=== PATIENT | female | born 1965 | race Caucasian/White ===

== ENCOUNTER 2017-10-21 09:56 | Day surgery (SDC) | payer BC ==
[2017-10-21] MEDS ORDERED: MIDAZOLAM HCL 2MG/2ML VIAL IV ONE (09:57)
[2017-10-21] MEDS ORDERED: PROPOFOL 10 MG/ML VIAL IV ONE (09:57)
[2017-10-21] MEDS ORDERED: LIDOCAINE 2% MDV (20MG/ML) 20ML VIAL IV ONE (09:57)
--- NOTE | 2017-10-22 12:41 | Operative Note ---
DATE OF SURGERY: 10/21/2017 OPERATION: COLONOSCOPY with cold forceps polypectomy. PREOPERATIVE DIAGNOSIS: Colon cancer screening, average risk. POSTOPERATIVE DIAGNOSES: 1. Diminutive sigmoid colon polyp. 2. Mild sigmoid diverticulosis. ESTIMATED BLOOD LOSS: Minimum. SPECIMENS: Sigmoid polyp. COMPLICATIONS: None apparent. PREPARATION QUALITY: Good to excellent. PROCEDURE: After informed consent was obtained from the patient, she was placed in the left lateral decubitus position in the endoscopy suite, sedated and monitored by the department of anesthesia. Digital rectal examination was unremarkable. A well-lubricated [id number] colonoscope was inserted into the rectum and advanced to the cecum. Ileocecal valve and appendiceal orifice were unremarkable. Preparation quality was good to excellent. The cecum, ascending colon, transverse colon, and descending colon were unremarkable. The sigmoid colon demonstrated diminutive polyp removed with a cold forceps. There was also noted to be a few small-mouthed diverticula in the sigmoid colon. No inflammation was seen. The rectum was unremarkable in forward and in J-turn views. The endoscope was straightened, the rectal ampulla deflated, and the endoscope was removed. RECOMMENDATIONS: I would suggest the patient follow a high-fiber diet, consider a fiber supplement. She will require repeat exam in 5-10 years pending tissue histology. As always, thank you for allowing me to participate in the healthcare of your patients. CC: Dr. Cherry ROSENBERG
== END 2017-10-21 11:34 | disposition home or self-care (01) ==
LOC: HOP 09:56
PROVIDERS: ATTEND Internal Medicine Gastroenterology
DX: Z12.11 Encounter for screening for malignant neoplasm of colon (principal); K63.5 Polyp of colon; K57.30 Diverticulosis of large intestine without perforation or abscess without bleeding

== ENCOUNTER 2017-10-21 21:38 | Emergency (ER) | payer BC ==
[2017-10-21] MEDS ORDERED: KETOROLAC 30 MG/ML VIAL IVP ONE (21:56)
[2017-10-21] MEDS ORDERED: DIPHENHYDRAMINE HCL IV 50 MG/ML VIAL IVP ONE (21:56)
[2017-10-21] MEDS ORDERED: 0.9 % SODIUM CHLORIDE 1,000 ML BAG IV ONE (21:56)
[2017-10-21] MEDS ORDERED: METOCLOPRAMIDE HCL 10 MG/2 ML VIAL IVP ONE (21:56)
--- NOTE | 2017-10-21 22:02 | Emergency Department Record ---
History of Present Illness - General Chief Complaint: Headache Migraine Stated Complaint: JUAREZ Time Seen by Provider: 10/21/17 21:45 Source: Patient Mode of Arrival: Ambulatory Limitations: No limitations - History of Present Illness Initial Comments: The patient is here due to a 3 day hx of a headache. It started out just like one of her normal Migraine JUAREZ's that she frequently experiences. The pain was mainly frontal with mild photophobia and nausea. She then yesterday started a colon prep for a Colonoscopy and the liquid made the nausea worse and she did vomit last evening. Today the nausea persisted and the JUAREZ has gradually worsened. Since she was home she has been unable to eat due to the nausea and vomiting. The patient denies any visual changes, fever, chills, neck stiffness, numbness, tingling or balance issues. She does have a long hx of migraines similar to this but since the colon prep started she has felt worse. Complaint: Headache, "Migraine" Onset/Timin -: Days(s) Onset Description: At rest Location: Frontal, Neck Severity scale (1-10): 8 Quality: Other Consistency: Constant Context: Occured at rest Associated Symptoms: Nausea, Vomiting - Related Data Home Medications Medication Instructions Recorded Confirmed Last Taken Trazodone HCl 50 mg PO QHS 10/21/17 10/21/17 Unknown Allergies Allergy/AdvReac Type Severity Reaction Status Date / Time Sulfa (Sulfonamide Allergy RASH Verified 05/17/15 10:43 Antibiotics) Travel Screening - Travel/Exposure Within Last 30 Days Have you traveled within the last 30 days?: No Review of Systems Constitutional: Denies: Chills, Fever Eyes: Denies: Eye discharge ENT: Denies: Congestion Respiratory: Denies: Cough, Dyspnea Past Medical History - SOCIAL HISTORY Smoking Status: Former smoker Alcohol Use: Rare Drug Use: None - RESPIRATORY Hx Respiratory Disorders: No - CARDIOVASCULAR Hx Cardio Disorders: Yes Hx Hypertension: Yes (last year on rx, no longer takes) Hx Irregular Heartbeat: Yes (hx of pvc, stated 20 years ago, has seen food and beverage assistant manager) Comment:: plays soccer currently - NEURO Hx Neuro Disorders: Yes Hx Headaches: Yes Hx of Migraines: Yes (occurs about 3 months) - GI Hx GI Disorders: Yes Hx Reflux: Yes (occ takes tums at night) Comment:: constipation - Hx Genitourinary Disorders: Yes Hx Kidney Stones: Yes - ENDOCRINE Hx Endocrine Disorders: No - MUSCULOSKELETAL Hx Musculoskeletal Disorders: Yes - PSYCH Hx Psych Problems: Yes Comment:: stress management - HEMATOLOGY/ONCOLOGY Hx Hematology/Oncology Disorders: No Family Medical History Any Significant Family History?: No Physical Exam - General General Appearance: Alert, Oriented x3, Cooperative, No acute distress (The patient is very pleasant and cooperative and nontoxic.) - Head Head exam: Atraumatic, Normocephalic, Normal inspection - Eye Eye exam: Normal appearance, PERRL - ENT Throat exam: Normal inspection. negative: Tonsillar erythema, Tonsillar exudate - Neck Neck exam: Normal inspection, Full ROM, Tenderness (Palpation of the posterior cervical mucles does reproduce the JUAREZ 100%.). negative: Lymphadenopathy, Meningismus (The neck is very supple.) - Respiratory Respiratory exam: Normal lung sounds bilaterally. negative: Respiratory distress - Cardiovascular Cardiovascular Exam: Regular rate, Normal rhythm, Normal heart sounds - GI/Abdominal GI/Abdominal exam: Soft, Normal bowel sounds. negative: Distended, Rigid, Tenderness - Extremities Extremities exam: Normal inspection, Full ROM, Normal capillary refill. negative: Tenderness - Neurological Neurological exam: Alert, Normal gait, Oriented X3. negative: Abnormal gait, Altered, Motor sensory deficit Course Vital Signs 10/21/17 21:43 Temperature 97.8 F Pulse Rate [ 72 Pulse Ox Probe] Respiratory 20 Rate Blood Pressure 152/105 [Left Arm] Pulse Ox 98 - Reevaluation(s) Reevaluation #1: The patient is doing better. Her pain is resolving and she is resting comfortably. 10/21/17 22:33 Reevaluation #2: The patient is doing much better at this time. The pain is 90% done at this time. She is up walking and feels much improved and is ready for home. 10/21/17 23:00 Medical Decision Making - Data Complexity MDM Data: Labs Ordered and/or Reviewed - Lab Data Result diagrams: 10/21/17 22:00 10/21/17 22:00 Disposition Disposition: Discharge Clinical Impression: Headache Qualifiers: Headache type: other headache syndrome Qualified Code(s): G44.89 - Other headache syndrome Disposition: Home, Self-Care Condition: (2) Stable Instructions: Acute Headache (ED) Additional Instructions: Please continue your regular medicines and rest when possible. Drink plenty of fluids. Please see your doctor if not better by Wednesday and return to the ER for any worsening head pain, fever, persistent vomiting, or confusion. Forms: Patient Portal Access Time of Disposition: 23:00 Quality - Quality Measures Quality Measures: N/A - Blood Pressure Screening View Details: Yes Does Patient Have Any of the Following: No Blood Pressure Classification: Hypertensive Reading Systolic Measurement: 152 Diastolic Measurement: 105 Screening for High Blood Pressure: < First Hypertensive BP, F/U Documented > [ G8950] First Hypertensive Follow-up Interventions: Referral to alternative/primary care provider.
[2017-10-21 22:08] LABS: BASO % 0.2 % (0-6); EOS % 0.2 % (0-6); HEMATOCRIT 38.1 % (35.0-47.0); HEMOGLOBIN 12.8 gm/dl (11.6-16.0); LYMPH % 8.9 % (16-45); MEAN CELL VOLUME 77.1 fl (81-97); MEAN CORPUSCULAR HEMOGLOBIN 25.9 pg (27-33); MEAN CORPUSCULAR HGB CONC 33.6 g/dl (32-36); MEAN PLATELET VOLUME 10.9 fl (7.4-10.4); MONO % 4.7 % (0-9); PLATELET COUNT 275 K/uL (130-400); RED BLOOD COUNT 4.94 M/uL (3.80-5.40); RED CELL DISTRIBUTION WIDTH 15.4 % (11.5-14.5); WHITE BLOOD COUNT W/O DIFF 8.3 K/uL (4.2-12.2)
[2017-10-21 22:27] LABS: ALBUMIN 4.5 g/dL (4.0-5.0); ALKALINE PHOSPHATASE 76 U/L (35-104); ALT/SGPT 10 U/L (<33); AST/SGOT 14 U/L (10.0-35.0); BLOOD UREA NITROGEN 9 mg/dL (6-20)
[2017-10-21 22:28] LABS: ALB/GLOB RATIO 1.6 (1.1-1.8); CREATININE 0.6 mg/dL (0.5-0.9); EST GLOMERULAR FILTRATION RATE > 60 mL/min; GLUCOSE,RANDOM 145 mg/dL (74-109); TOTAL PROTEIN 7.4 g/dL (6.6-8.7)
--- NOTE | 2017-10-21 23:04 | Emergency Department Record ---
History of Present Illness - General Chief Complaint: Headache Migraine Stated Complaint: JUAREZ Time Seen by Provider: 10/21/17 21:45 Mode of Arrival: Ambulatory Limitations: No limitations - History of Present Illness Onset/Timin -: Days(s) Onset Description: At rest Location: Frontal, Neck Severity scale (1-10): 8 Quality: Other Consistency: Constant Context: Occured at rest Associated Symptoms: Nausea, Vomiting - Related Data Home Medications Medication Instructions Recorded Confirmed Last Taken Trazodone HCl 50 mg PO QHS 10/21/17 10/21/17 Unknown Allergies Allergy/AdvReac Type Severity Reaction Status Date / Time Sulfa (Sulfonamide Allergy RASH Verified 05/17/15 10:43 Antibiotics) Travel Screening - Travel/Exposure Within Last 30 Days Have you traveled within the last 30 days?: No Review of Systems Constitutional: Denies: Chills, Fever Eyes: Denies: Eye discharge ENT: Denies: Congestion Respiratory: Denies: Cough, Dyspnea Past Medical History - SOCIAL HISTORY Smoking Status: Former smoker Alcohol Use: Rare Drug Use: None - RESPIRATORY Hx Respiratory Disorders: No - CARDIOVASCULAR Hx Cardio Disorders: Yes Hx Hypertension: Yes (last year on rx, no longer takes) Hx Irregular Heartbeat: Yes (hx of pvc, stated 20 years ago, has seen iron worker foreman) Comment:: plays soccer currently - NEURO Hx Neuro Disorders: Yes Hx Headaches: Yes Hx of Migraines: Yes (occurs about 3 months) - GI Hx GI Disorders: Yes Hx Reflux: Yes (occ takes tums at night) Comment:: constipation - Hx Genitourinary Disorders: Yes Hx Kidney Stones: Yes - ENDOCRINE Hx Endocrine Disorders: No - MUSCULOSKELETAL Hx Musculoskeletal Disorders: Yes - PSYCH Hx Psych Problems: Yes Comment:: stress management - HEMATOLOGY/ONCOLOGY Hx Hematology/Oncology Disorders: No Family Medical History Any Significant Family History?: No Physical Exam - General Limitations: No limitations - Neurological Neurological exam: Normal gait, Other (Neg Drift and Rhomberb exams.). negative : Abnormal gait Course Vital Signs 10/21/17 21:43 Temperature 97.8 F Pulse Rate [ 72 Pulse Ox Probe] Respiratory 20 Rate Blood Pressure 152/105 [Left Arm] Pulse Ox 98 Medical Decision Making - Lab Data Result diagrams: 10/21/17 22:00 10/21/17 22:00 Lab Results 02/22/18 02/22/18 Range/Units 22:00 22:00 WBC 8.3 (4.2-12.2) K/uL RBC 4.94 (3.80-5.40) M/uL Hgb 12.8 (11.6-16.0) gm/dl Hct 38.1 (35.0-47.0) % MCV 77.1 L (81-97) fl MCH 25.9 L (27-33) pg MCHC 33.6 (32-36) g/dl RDW 15.4 H (11.5-14.5) % Plt Count 275 (130-400) K/uL MPV 10.9 H (7.4-10.4) fl Neutrophils % 88.0 H (47-80) % Lymphocytes % 8.9 L (16-45) % Monocytes % 4.7 (0-9) % Eosinophils % 0.2 (0-6) % Basophils % 0.2 (0-6) % Lymphocytes 9.0 L (16-45) % Monocytes 3.0 (0-9) % Sodium 141 (136-145) mmol/L Potassium 3.7 (3.4-4.5) mmol/L Chloride 102 (98-107) mmol/L Carbon Dioxide 26.0 (22-29) mmol/L Anion Gap 13.0 (7-16) BUN 9 (6-20) mg/dL Creatinine 0.6 (0.5-0.9) mg/dL Estimated GFR > 60 mL/min Random Glucose 145 H (74-109) mg/dL Calcium 9.3 (8.6-10.0) mg/dL Total Bilirubin 0.50 (0.2-1.0) mg/dL AST 14 (10.0-35.0) U/L ALT 10 (<33) U/L Alkaline Phosphatase 76 (35-104) U/L Total Protein 7.4 (6.6-8.7) g/dL Albumin 4.5 (4.0-5.0) g/dL Globulin 2.9 (1.4-4.8) gm/dL Albumin/Globulin Ratio 1.6 (1.1-1.8) Disposition Clinical Impression: Headache Qualifiers: Headache type: other headache syndrome Qualified Code(s): G44.89 - Other headache syndrome Disposition: Home, Self-Care Condition: (2) Stable Instructions: Acute Headache (ED) Additional Instructions: Please continue your regular medicines and rest when possible. Drink plenty of fluids. Please see your doctor if not better by Wednesday and return to the ER for any worsening head pain, fever, persistent vomiting, or confusion. Forms: Patient Portal Access Quality - Quality Measures Quality Measures: N/A - Blood Pressure Screening View Details: Yes Does Patient Have Any of the Following: No Blood Pressure Classification: Hypertensive Reading Systolic Measurement: 152 Diastolic Measurement: 105 Screening for High Blood Pressure: < First Hypertensive BP, F/U Documented > [ G8950] First Hypertensive Follow-up Interventions: Referral to alternative/primary care provider.
== END 2017-10-21 23:06 | disposition home or self-care (01) ==
LOC: ER 21:38
DX: G44.89 Other headache syndrome (principal); M54.2 Cervicalgia; R11.2 Nausea with vomiting, unspecified; I10 Essential (primary) hypertension; Z87.891 Personal history of nicotine dependence
CPT/HCPCS: 99284 ×2; 96374; 96375; 80053; 85027; J1885; J1200; J2765; J7030

== ENCOUNTER 2018-07-12 13:47 | Emergency (ER) | payer BC, OTHER ==
--- NOTE | 2018-07-12 14:16 | Emergency Department Record ---
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 Pt states she had blood on the medical aspect of her nose on the right. She immediately washed her face. Source patient is admitted to [facility] at this time. - Related Data Allergies Allergy/AdvReac Type Severity Reaction Status Date / Time Sulfa (Sulfonamide Allergy RASH Verified 05/17/15 10:43 Antibiotics) Travel Screening - Travel/Exposure Within Last 30 Days Have you traveled within the last 30 days?: No Review of Systems Constitutional: Reports: As per HPI. Denies: Chills, Fever, Malaise, Night sweats, Weakness, Weight change Eyes: Denies: Eye discharge, Eye pain ENT: Denies: Congestion Respiratory: Denies: Cough, Dyspnea Cardiovascular: Denies: Arrhythmia Endocrine: Denies: Fatigue Gastrointestinal: Denies: Abdominal pain Genitourinary: Denies: Abnormal menses Musculoskeletal: Denies: Arthralgia Skin: Denies: Bruising Neurological: Denies: Abnormal gait Psychiatric: Denies: Anxiety Hematological/Lymphatic: Denies: Anemia Past Medical History - SOCIAL HISTORY Smoking Status: Former smoker - RESPIRATORY Hx Respiratory Disorders: No - CARDIOVASCULAR Hx Cardio Disorders: Yes Hx Hypertension: Yes (last year on rx, no longer takes) Hx Irregular Heartbeat: Yes (hx of pvc, stated 20 years ago, has seen performance test consultant) Comment:: plays soccer currently - NEURO Hx Neuro Disorders: Yes Hx Headaches: Yes Hx of Migraines: Yes (occurs about 3 months) - GI Hx GI Disorders: Yes Hx Reflux: Yes (occ takes tums at night) Comment:: constipation - Hx Genitourinary Disorders: Yes Hx Kidney Stones: Yes - ENDOCRINE Hx Endocrine Disorders: No - MUSCULOSKELETAL Hx Musculoskeletal Disorders: Yes - PSYCH Hx Psych Problems: Yes Comment:: stress management - HEMATOLOGY/ONCOLOGY Hx Hematology/Oncology Disorders: No Family Medical History Any Significant Family History?: Yes Family Hx Comment (NOT TO BE USED IN PLACE OF ITEMS BELOW): daughter- Ulcerative colitis, had colon removed Physical Exam - General General Appearance: Alert, Oriented x3, Cooperative, No acute distress - Head Head exam: Atraumatic - Eye Eye exam: Normal appearance, PERRL, EOMI. negative: Conjunctival injection - ENT ENT exam: Normal exam, Mucous membranes moist, Normal external ear exam, Normal orophraynx Nasal Exam: Normal inspection. negative: Discharge, Foreign body - Neck Neck exam: Normal inspection. negative: Tenderness - Respiratory Respiratory exam: Normal lung sounds bilaterally. negative: Wheezes - Cardiovascular Cardiovascular Exam: Regular rate, Normal rhythm, Normal heart sounds - GI/Abdominal GI/Abdominal exam: Soft. negative: Tenderness - Extremities Extremities exam: Normal inspection. negative: Tenderness - Neurological Neurological exam: Alert, Normal gait, Oriented X3 - Psychiatric Psychiatric exam: Normal affect, Normal mood - Skin Skin exam: Normal color. negative: Rash Course Vital Signs 07/12/18 13:51 Temperature 97.5 F L Pulse Rate 85 Respiratory 20 Rate Blood Pressure 139/96 Pulse Ox 97 - Reevaluation(s) Reevaluation #1: 07/12/18 14:14 Labs on patient ordered per protocol. Source patient is in patient. Disposition Disposition: Discharge Clinical Impression: Employee exposure to blood Disposition: Home, Self-Care Condition: (1) Good Instructions: Body Substance Exposure (ED) Additional Instructions: follow up with employee health as instructed. Forms: Patient Portal Access Time of Disposition: 14:17 Quality - Quality Measures Quality Measures: N/A - Blood Pressure Screening Does Patient Have Any of the Following: No Blood Pressure Classification: Hypertensive Reading Systolic Measurement: 139 Diastolic Measurement: 96 Screening for High Blood Pressure: < Pre-Hypertensive BP, F/U Documented > [ G8950] Pre-Hypertensive Follow-up Interventions: Follow-up with rescreen every year.
[2018-07-13 01:14] LABS: HEP A AB IGM Nonreactive (Nonreactive); HEPATITIS B CORE ANTIBODY,IGM Nonreactive (Nonreactive); HEPATITIS B SURFACE ANTIBODY >1000.00 mIU/mL; HEPATITIS B SURFACE ANTIGEN Nonreactive (Nonreactive); HEPATITIS C VIRUS ANTIBODY Nonreactive (Nonreactive)
== END 2018-07-12 14:41 | disposition home or self-care (01) ==
LOC: ER 13:47
DX: Z77.21 Contact with and (suspected) exposure to potentially hazardous body fluids (principal); Y92.230 Patient room in hospital as the place of occurrence of the external cause; Y99.0 Civilian activity done for income or pay
CPT/HCPCS: 87390; 99283